=== PATIENT | male | born 1975 | race Hispanic/Latino ===

== ENCOUNTER 2022-10-02 20:53 | Inpatient (IN) | payer BC ==
[~2022-10-02 20:53] MED LIST: Iopamidol 300 61% 100 ML VIAL FS ONE
[2022-10-02] MEDS ORDERED: Morphine 4 MG/ML VIAL ONE (21:40)
[2022-10-02] MEDS ORDERED: Ondansetron PF 4 MG/2 ML Vial ONE (21:40)
[2022-10-02 22:07] LABS: #Eosinphils 0.1 10x3/uL (0.0-0.5); #Monocytes 0.4 10x3/uL (0.0-1.1); #Neutrophils 8.3 10x3/uL (1.5-8.4); %Basophils 0.3 % (0.0-2.0); %Eosinophils 0.6 % (0.0-6.0); %Lymphocytes 18.1 % (18.0-47.0); %Monocytes 3.5 % (0.0-10.0); %Neutrophils 77.2 % (40.0-75.0); Mean Corpuscular HGB CONC 34.1 g/dL (32.0-36.0); Mean Corpuscular Hemoglobin 30.9 pg (27.0-33.0); Mean Corpuscular Volume 90.5 fl (81.2-95.1); Mean Platelet Volume 11.3 fl (7.4-10.4); Platelet Count 303 10x3/uL (150-450); RBC Distribution Width 12.1 % (11.5-14.5); Red Blood Cell (RBC) Count 4.53 10x6/uL (4.32-5.72); White Blood Cell (WBC) Count 10.8 10x3/uL (3.5-10.5)
[2022-10-02 22:23] LABS: ALT (SGPT) 41 U/L (8-55); AST (SGOT) 28 U/L (5-34); Alkaline Phosphatase 102 U/L (40-110); Anion Gap 12 mmol/L (10-20); BUN (Urea Nitrogen) 13 mg/dL (8.9-20.6); Bilirubin, Total 0.9 mg/dL (0.2-1.2); Calc. Creatinine Clearance 0 mL/min (70-130); Calcium 8.7 mg/dL (7.8-10.44); Carbon Dioxide 25 mmol/L (22-29); Chloride 106 mmol/L (98-107); Estimated GFR 102; Globulin 2.9 g/dL (2.4-3.5); Glucose 124 mg/dL (70-105); Lipase 28 U/L (8-78); Potassium 3.9 mmol/L (3.5-5.1); Protein, Total 6.9 g/dL (6.0-8.3); Sodium 139 mmol/L (136-145)
[2022-10-02 23:17] LABS: Bilirubin Neg (Negative); Blood, Urine Negative (Negative); Clarity Clear (Clear); Glucose, Urine (Dipstick) 50 mg/dL (Negative); Ketone, Urine Negative (Negative); Leukocyte Negative (Negative); Nitrite Negative (Negative); Protein, Urine (Dipstick) 15 mg/dl (Neg-Trace); Urobilinogen Normal mg/dL (Less than 2)
[2022-10-03] MEDS ORDERED: Ondansetron PF 4 MG/2 ML Vial IVP PRN (00:21)
[2022-10-03] MEDS ORDERED: Acetaminophen 325 MG TAB PO PRN (00:21)
[2022-10-03] MEDS ORDERED: Ondansetron ODT 4 MG TAB PO PRN (00:21)
[2022-10-03] MEDS ORDERED: Morphine 2 MG/ML VIAL SLOW IVP PRN (00:35)
[2022-10-03 00:56] LABS: Magnesium 2.1 mg/dL (1.6-2.6)
[2022-10-03 01:06] LABS: SARS-CoV-2 NAA Rapid Test Not Detected (NotDetected)
[2022-10-03 01:47] VITALS: BMI 33.6
[2022-10-03] MEDS: NS 0.9% w/ 20 MEQ KCL 1,000 ML/1,000 ML BAG IV SCH (02:02)
[2022-10-03] MEDS: Morphine 4 MG/ML VIAL SLOW IVP PRN ×3 (02:03→12:13)
[2022-10-03] MEDS: metroNIDAZOLE 500 MG in Premix Bag 1 BAG IVPB SCH ×4 (02:08→20:20)
[2022-10-03 05:19] LABS: Anion Gap 11 mmol/L (10-20); BUN (Urea Nitrogen) 11 mg/dL (8.9-20.6); Calc. Creatinine Clearance 143 mL/min (70-130); Calcium 8.5 mg/dL (7.8-10.44); Carbon Dioxide 24 mmol/L (22-29); Chloride 103 mmol/L (98-107); Estimated GFR 106; Glucose 159 mg/dL (70-105); Potassium 3.1 mmol/L (3.5-5.1); Sodium 135 mmol/L (136-145)
[2022-10-03 05:38] LABS: Hemoglobin 13.4 g/dL (13.5-17.5); Mean Corpuscular HGB CONC 34.9 g/dL (32.0-36.0); Mean Corpuscular Hemoglobin 31.2 pg (27.0-33.0); Mean Corpuscular Volume 89.3 fl (81.2-95.1); Mean Platelet Volume 11.5 fl (7.4-10.4); Platelet Count 276 10x3/uL (150-450); RBC Distribution Width 12.1 % (11.5-14.5); White Blood Cell (WBC) Count 20.9 10x3/uL (3.5-10.5)
[2022-10-03 05:42] LABS: MDiff Complete? YES
[2022-10-03 05:57] LABS: Band 13 % (5-11); Lymphocytes 4 % (21-51); Monocytes 6 % (0-10); Neutrophil 77 % (42-75)
[2022-10-03 05:58] LABS: Platelet Morphology Comment Appears Adequate; RBC Morphology Normal
[2022-10-03] MEDS: Enoxaparin Sodium 40 MG/0.4 ML SYRINGE SC SCH (07:50)
[2022-10-03] MEDS ORDERED: Potassium Chloride 20 MEQ TAB PO SCH (14:00)
[2022-10-03] MEDS: Acetaminophen 500 MG TAB PO SCH ×2 (14:03→20:20)
[2022-10-03] MEDS: oxyCODONE 5 MG TAB PO PRN ×2 (14:04→20:21)
[2022-10-04] MEDS: NS 0.9% w/ 20 MEQ KCL 1,000 ML/1,000 ML BAG IV SCH ×3 (00:52→15:09)
[2022-10-04] MEDS: metroNIDAZOLE 500 MG in Premix Bag 1 BAG IVPB SCH ×3 (01:51→15:09)
[2022-10-04] MEDS: Acetaminophen 500 MG TAB PO SCH ×2 (09:05→15:16)
[2022-10-04] MEDS: Enoxaparin Sodium 40 MG/0.4 ML SYRINGE SC SCH (09:06)
[2022-10-04 09:22] LABS: #Eosinphils 0.2 10x3/uL (0.0-0.5); #Monocytes 0.7 10x3/uL (0.0-1.1); #Neutrophils 5.7 10x3/uL (1.5-8.4); %Basophils 0.3 % (0.0-2.0); %Lymphocytes 23.3 % (18.0-47.0); %Monocytes 7.9 % (0.0-10.0); %Neutrophils 66.2 % (40.0-75.0); Hemoglobin 12.4 g/dL (13.5-17.5); Mean Corpuscular HGB CONC 33.8 g/dL (32.0-36.0); Mean Corpuscular Hemoglobin 30.8 pg (27.0-33.0); Mean Corpuscular Volume 91.1 fl (81.2-95.1); Mean Platelet Volume 11.4 fl (7.4-10.4); Platelet Count 237 10x3/uL (150-450); RBC Distribution Width 11.9 % (11.5-14.5); Red Blood Cell (RBC) Count 4.03 10x6/uL (4.32-5.72); White Blood Cell (WBC) Count 8.6 10x3/uL (3.5-10.5)
[2022-10-04 09:31] LABS: Anion Gap 9 mmol/L (10-20); BUN (Urea Nitrogen) 7 mg/dL (8.9-20.6); Calc. Creatinine Clearance 154 mL/min (70-130); Calcium 8.4 mg/dL (7.8-10.44); Carbon Dioxide 25 mmol/L (22-29); Chloride 107 mmol/L (98-107); Estimated GFR 108; Glucose 105 mg/dL (70-105); Potassium 4.4 mmol/L (3.5-5.1); Sodium 137 mmol/L (136-145)
[2022-10-04 11:45] VITALS: BP 129/71; TEMP 98
== END 2022-10-04 15:29 | disposition home or self-care (01) | DRG 394 ==
LOC: CSHERS 20:53 → CSHTELE 10-03 01:29
PROVIDERS: ADMIT Family Medicine; ATTEND Hospitalist
DX: K91.89 Other postprocedural complications and disorders of digestive system (principal); E87.1 Hypo-osmolality and hyponatremia; K57.92 Diverticulitis of intestine, part unspecified, without perforation or abscess without bleeding; I10 Essential (primary) hypertension; K52.9 Noninfective gastroenteritis and colitis, unspecified; E66.9 Obesity, unspecified; E78.5 Hyperlipidemia, unspecified; F17.210 Nicotine dependence, cigarettes, uncomplicated; K57.90 Diverticulosis of intestine, part unspecified, without perforation or abscess without bleeding; Z20.822 Contact with and (suspected) exposure to COVID-19; Y83.8 Other surgical procedures as the cause of abnormal reaction of the patient, or of later complication, without mention of misadventure at the time of the procedure
CPT/HCPCS: 36415; 74177; 80048; 80053; 81003; 83605; 83690; 83735; 85025; 86140; 87040; 87324; 87449; J0744; J2270; J2405; J3480; Q9967; U0002